=== PATIENT | male | born 1955 | race Caucasian/White ===

== ENCOUNTER 2018-04-11 12:39 | Emergency (ER) | payer BC ==
[2018-04-11 13:35] VITALS: BP 145/73
--- NOTE | 2018-04-11 13:47 | UC ---
General HPI - HPI Summary HPI Summary: pt had a tia this past Thursday. while in [facility], he had a R carotid endarterectomy on thursday by Dr Magana. on , he noted a little swelling at the site which is now just a little worse. he denies any pain, ROSA, fever or trouble with speech/swallow. - History of Current Complaint Chief Complaint: UCGeneralIllness Stated Complaint: POST OP SWELLING JAW AREA Time Seen by Provider: 04/11/18 13:32 Hx Obtained From: Patient, Family/Refractory Technician Onset/Duration: Gradual Onset Timing: Constant Pain Intensity: 0 Associated Signs & Symptoms: Negative: Fever - Allergy/Home Medications Allergies/Adverse Reactions: Allergies Allergy/AdvReac Type Severity Reaction Status Date / Time No Known Allergies Allergy Verified 04/11/18 13:27 Home Medications: Home Medications Aspirin [Aspirin Childrens 81 MG] 162 mg PO DAILY 04/11/18 [History Confirmed ] Atorvastatin* [Lipitor*] 80 mg PO DAILY 04/11/18 [History Confirmed 04/11/18] amLODIPine TAB* [Norvasc 5 mg TAB*] 2.5 mg PO DAILY 04/11/18 [History Confirmed 04/11/18] PMH/Surg Hx/FS Hx/Imm Hx - Additional Past Medical History Additional PMH: TIA this week and new tx for lipids and BP. R carotid endarterectomy this week Other History Of: Negative For: HIV, Hepatitis B, Hepatitis C, Anticoagulant Therapy - Surgical History Surgical History: Yes Surgery Procedure, Year, and Place: Ears - "scraped infection off the bone", "I have a piece of titanium in there for something". gallbladder removal - Family History Known Family History: Positive: Cardiac Disease, Hypertension - Social History Lives: With Family Alcohol Use: Daily Alcohol Amount: 2-3 beers nightly Substance Use Type: None Smoking Status (MU): Heavy Every Day Tobacco Smoker Type: Cigarettes Amount Used/How Often: 1PPD Length of Time of Smoking/Using Tobacco: 20+ years Household Exposure Type: Cigarettes - Immunization History Most Recent Influenza Vaccination: 2012 Vaccination Up to Date: Yes Review of Systems Constitutional: Negative Skin: Negative Eyes: Negative ENT: Negative Respiratory: Negative Cardiovascular: Negative Gastrointestinal: Negative Genitourinary: Negative Motor: Negative Neurovascular: Negative Musculoskeletal: Edema - R neck at surgical site Neurological: Negative Psychological: Negative Is Patient Immunocompromised?: No All Other Systems Reviewed And Are Negative: Yes Physical Exam Triage Information Reviewed: Yes Appearance: Well-Appearing Vital Signs: Initial Vital Signs Temp 97.3 F 04/11/18 13:31 Pulse 63 04/11/18 13:31 Resp 18 04/11/18 13:31 BP 145/73 04/11/18 13:31 Pulse Ox 99 04/11/18 13:31 Vital Signs Reviewed: Yes Eyes: Positive: Conjunctiva Clear ENT: Positive: Hearing grossly normal, TMs normal. Negative: Nasal congestion, Nasal drainage Neck: Positive: Other: - R side of neck post op site closed without red or warmth. The area is tender to gentle touch and is swollen/indurated to about 6cm. No carotid bruits. No overt adenopathy. Respiratory: Positive: Lungs clear, Normal breath sounds Cardiovascular: Positive: RRR, No Murmur Abdomen Description: Positive: Nontender, No Organomegaly, Soft Bowel Sounds: Positive: Present Musculoskeletal: Positive: ROM Intact Neurological: Positive: Other: - A&Ox3. CN 2-12 grossly intact. Steady gait. Gross s/v/m intact x4. Psychological: Positive: Normal Response To Family, Age Appropriate Behavior Skin Exam: Normal Course/Dx - Course Course Of Treatment: pt needs transfer to [facility] for evaluation of the post op site. EMS declined, will drive. [facility] transfer center called and report given. They advise pt go to [facility] [place]. - Differential Dx - Multi-Symptom Provider Diagnoses: Acute swelling and induration R neck at post op site. Discharge - Sign-Out/Discharge Documenting (check all that apply): Discharge/Admit/Transfer - Discharge Plan Condition: Stable Disposition: TRANS [facility] OF CARE FAC Referrals: Edwin Tim MD [Primary Care Provider] - Additional Instructions: GO DIRECTLY TO [facility] EMERGENCY ROOM IMMEDIATELY UPON LEAVING HERE DISCUSSED. REORT GIVEN TO THE TRANSFER CENTER - Billing Disposition and Condition Condition: STABLE Disposition: EMTMALENA
== END 2018-04-11 13:57 | disposition home or self-care (01) ==
LOC: UCCORT 12:39
DX: R22.1 Localized swelling, mass and lump, neck (principal); R23.4 Changes in skin texture; Z86.73 Personal history of transient ischemic attack (TIA), and cerebral infarction without residual deficits; F17.210 Nicotine dependence, cigarettes, uncomplicated
CPT/HCPCS: 99212; G0463

== ENCOUNTER 2019-05-23 13:29 | Emergency (ER) | payer BC ==
[2019-05-23 14:33] VITALS: BP 132/69
--- NOTE | 2019-05-23 14:47 | UC ---
Throat Pain/Nasal Ji HPI - HPI Summary HPI Summary: 63 yo male with 10 or more day hx of sinus pressure and pain/post nasal drip and cough no fever or chills - History of Current Complaint Chief Complaint: UCGeneralIllness Stated Complaint: SINUS Time Seen by Provider: 05/23/19 14:45 Hx Obtained From: Patient Onset/Duration: Gradual Onset, Lasting Days Severity: Moderate Pain Intensity: 0 Pain Scale Used: 0-10 Numeric Cough: Nonproductive Associated Signs & Symptoms: Positive: Sinus Discomfort, Nasal Discharge - Epiglottits Risk Factors Epiglottis Risk Factors: Negative - Allergies/Home Medications Allergies/Adverse Reactions: Allergies Allergy/AdvReac Type Severity Reaction Status Date / Time No Known Allergies Allergy Verified 05/23/19 14:33 Home Medications: Home Medications Esomeprazole(NF) [NexIUM(NF)] 40 mg PO DAILY 05/23/19 [History Confirmed ] PMH/Surg Hx/FS Hx/Imm Hx Previously Healthy: Yes Cardiovascular History: Hypertension Respiratory History: Bronchitis Other History Of: Negative For: HIV, Hepatitis B, Hepatitis C, Anticoagulant Therapy - Surgical History Surgical History: Yes Surgery Procedure, Year, and Place: Ears - "scraped infection off the bone", "I have a piece of titanium in there for something". gallbladder removal, stent put in neck 03/2018 - Family History Known Family History: Positive: Cardiac Disease, Hypertension - Social History Alcohol Use: Daily Alcohol Amount: 2-3 beers nightly Substance Use Type: None Smoking Status (MU): Heavy Every Day Tobacco Smoker Type: Cigarettes Amount Used/How Often: 1PPD Length of Time of Smoking/Using Tobacco: 20+ years Household Exposure Type: Cigarettes - Immunization History Most Recent Influenza Vaccination: 2013 Vaccination Up to Date: Yes Review of Systems All Other Systems Reviewed And Are Negative: Yes Constitutional: Positive: Fatigue Skin: Positive: Negative Eyes: Positive: Negative ENT: Positive: Nasal Discharge, Sinus Congestion, Sinus Pain/Tenderness Respiratory: Positive: Cough Cardiovascular: Positive: Negative Gastrointestinal: Positive: Negative Genitourinary: Positive: Negative Motor: Positive: Negative Neurovascular: Positive: Negative Musculoskeletal: Positive: Negative Neurological: Positive: Negative Psychological: Positive: Negative Physical Exam Triage Information Reviewed: Yes Appearance: Well-Appearing, No Pain Distress, Well-Nourished Vital Signs: Initial Vital Signs Temp 97.5 F 05/23/19 14:28 Pulse 61 05/23/19 14:28 Resp 16 05/23/19 14:28 BP 132/69 05/23/19 14:28 Pulse Ox 99 05/23/19 14:28 Vital Signs Reviewed: Yes Eyes: Positive: Conjunctiva Clear ENT: Positive: Nasal congestion, Sinus tenderness, Uvula midline. Negative: Hearing grossly normal, Nasal drainage, TMs normal - chronic perf left, Tonsillar exudate, Trismus, Muffled voice, Hoarse voice, Dental tenderness Neck: Positive: Supple, Nontender Respiratory: Positive: Lungs clear, Normal breath sounds, No respiratory distress, No accessory muscle use Cardiovascular: Positive: RRR, No Murmur Neurological: Positive: Alert Psychological Exam: Normal Skin Exam: Normal Throat Pain/Nasal Course/Dx - Differential Dx/Diagnosis Provider Diagnosis: Acute sinusitis, Smoker Discharge - Sign-Out/Discharge Documenting (check all that apply): Patient Departure All imaging exams completed and their final reports reviewed: No Studies - Discharge Plan Condition: Stable Disposition: HOME Prescriptions: Amoxicillin PO (*) [Amoxicillin 875 MG (*)] 875 mg PO BID #20 tab Fluticasone NASAL SPRAY 50MCG* [Flonase NASAL SPRAY 50MCG*] 2 spray BOTH NARES BID #1 btl Patient Education Materials: Sinusitis (ED) Referrals: Farzana Guerrero PA [Primary Care Provider] - 1 Week (if not better) Additional Instructions: saline nasal spray OTC 2 sprays each nostril twice daily about 5 minutes before using flonase - Billing Disposition and Condition Condition: STABLE Disposition: Home
== END 2019-05-23 15:02 | disposition home or self-care (01) ==
LOC: UCCORT 13:29
DX: J01.90 Acute sinusitis, unspecified (principal); F17.210 Nicotine dependence, cigarettes, uncomplicated; I10 Essential (primary) hypertension
CPT/HCPCS: 99212; G0463

== ENCOUNTER 2020-01-15 13:46 | Emergency (ER) | payer BC ==
--- OUTSIDE RECORDS SUMMARY | 2020-01-15 15:05 | XMS REPORT | Continuity of Care Document ---
:1955 External Reference #:[id number] Author Name BULL Crane (transmitted by agent of provider Juaquin Moncada) Address [address] [place] [address] Care Team Providers Name Role Phone Farzana Guerrero PA - Physician Cardiac Tech Care Team Information Professional Caster Problems Active Problems Provider Date Transient cerebral ischemia Onset: 08/09/2018 Hyperlipidemia Onset: 08/09/2018 Salmonella gastroenteritis Onset: 08/09/2018 Type 2 diabetes mellitus Onset: 08/09/2018 Carotid artery occlusion Onset: 08/09/2018 Anxiety state Onset: 08/09/2018 Recurrent depression Onset: 08/09/2018 Essential hypertension Onset: 08/09/2018 Acute suppurative otitis media with spontaneous Onset: 08/09/2018 rupture of ear drum Hearing loss Onset: 08/09/2018 Lateral epicondylitis Onset: 09/23/2013 Gastroesophageal reflux disease Onset: 09/23/2013 Tobacco user Onset: 09/23/2013 Mastoiditis BULL Crane Onset: 08/19/2019 Chronic otitis externa BULL Crane Onset: 08/19/2019 Social History Type Date Description Comments Sex Unknown Tobacco Use Start: Unknown Current Cigarette Smoker 1 1/2 Packs Daily ETOH Use Occasionally consumes alcohol Recreational Drug Use Denies Drug Use Tobacco Use Reviewed: 12/07/17 Heavy tobacco smoker (more than 10 cigarettes/day) Smoking Status Reviewed: 12/07/19 Heavy tobacco smoker (more than 10 cigarettes/day) Exercise Type/Frequency Does not exercise Tattoo/Piercing Tattoo right arm left Allergies, Adverse Reactions, Alerts Description No Known Drug Allergies Medications Active Medications SIG Qnty Indications Ordering Date Provider Ciprodex 3 to 4 drops in 7.500ml H60.8x2 Edwni 08/17/2019 0.3-0.1% affected ear twice MD Meeta Suspension a day for 5 to 7 days Esomeprazole Take 1 Capsule 90caps 10/04/2018 Magnesium Daily MD Meeta 40mg Capsules DR Fuentes Starting use as directed 53tabs Z71.6 04/12/2018 Month Vega MD Meeta 0.5mg X 11 & 1 mg X 42 Tablets Amlodipine Besylate Take 1 Tablet 90tabs 04/08/2018 Daily MD Meeta 2.5mg Tablets Atorvastatin Calcium Take 1 Tablet 90tabs Edwin 04/08/2018 Daily MD Meeta 80mg Tablets Aspirin Childrens 1 by mouth every 100units 04/08/2018 day MD Meeta 81mg Chewtabs Citalopram Take 1 Tablet 90tabs Edwin 02/01/2018 Hydrobromide Daily MD Meeta 40mg Tablets Cialis one every day as 9tabs Edwin 07/09/2017 10mg Tablets needed ed MD Meeta Levothyroxine Sodium Take 1 Tablet 90tabs Edwin Daily For MD Meeta 50mcg Tablets Underactive Thyroid History Medications Amoxicillin/Clavulanate one pill 20tabs H66.91 Edwin 08/17/2019 - Potassium with food MD Meeta 09/07/2019 875-125mg Tablets twice a day Prednisone 2 tablets 9tabs H66.91 Edwin 08/17/2019 - 20mg Tablets day one and MD Meeta 09/07/2019 two, 1 tablet day 3,4,5, then one half tablet day 6,7,8 and 9 Immunizations CPT Code Status Date Vaccine Lot # [id number] Given 09/20/2013 Influenza Virus 3Yrs & Over [id number] Given 07/03/2008 Tdap - Tetanus/Diptheria/Acellular Pertussis Vital Signs Date Vital Result Comment 12/07/2019 4:19pm Height 67.8 inches 5'7.80" Weight 173.56 lb BP Systolic Sitting 126 mmHg BP Diastolic Sitting 70 mmHg Respiratory Rate 14 /min Body Temperature 98.8 F BMI (Body Mass Index) 26.5 kg/m2 09/07/2019 3:31pm Weight 177.56 lb BP Systolic Sitting 138 mmHg BP Diastolic Sitting 80 mmHg Results Description No Information Available Procedures Description No Information Available Medical Devices Description No Information Available Encounters Type Date Location Provider Dx Diagnosis Office Visit 09/07/[address] [facility] Primary Care BULL Crane H66.91 Otitis media , 3:30p unspecified, right ear Z72.0 Tobacco use R73.9 Hyperglycemia, unspecified E78.5 Hyperlipidemia, unspecified E03.9 Hypothyroidism, unspecified H60.62 Unspecified chronic otitis externa, left ear Office Visit 08/17/2019 11:15a [facility] Primary BULL Crane J06.9 Acute upper Care respiratory infection, unspecified H66.91 Otitis media, unspecified, right ear H60.8x2 Other otitis externa, left ear H65.22 Chronic serous otitis media, left ear Assessments Date Code Description Provider 12/07/2019 Z00.01 Adult health examination BULL Crane 09/07/2019 H66.91 Otitis media, unspecified, right ear BULL Crane 09/07/2019 Z72.0 Tobacco use BULL Crane 09/07/2019 R73.9 Hyperglycemia, unspecified BULL Crane 09/07/2019 E78.5 Hyperlipidemia, unspecified BULL Crane 09/07/2019 E03.9 Hypothyroidism, unspecified BULL Crane 09/07/2019 H60.62 Unspecified chronic otitis externa, left ear BULL Crane 08/17/2019 J06.9 Acute upper respiratory infection, unspecified BULL Crane 08/17/2019 H66.91 Otitis media, unspecified, right ear B[facility] Crane 08/17/2019 H60.8x2 Other otitis externa, left ear BULL Crane 08/17/2019 H65.22 Chronic serous otitis media, left ear B[facility] Crane Plan of Treatment Future Appointment(s):06/06/2020 4:00 pm - B[facility] Crane at [facility] Primary Care - Farzana Guerrero PAZ00.01 Adult health examinationNew Labs:Basic Metabolic Panel, Ordered: 12/07/19CBC Auto Diff, Ordered: 12/07/19Liver Function Panel, Ordered: 12/07/19Lipid Profile (Trig/Chol/HDL), Ordered: 12/07/19TSH (Thyroid Stim Horm), Ordered: 12/07/19Hemoglobin A1c (Glyco HGB), Ordered: 12/07/19 Functional Status Functional Condition Comment Date Status Bifocal glasses Active Partial upper dentures Active Hearing Aide Active Mental Status Description No Information Available Referrals Description No Information Available
--- OUTSIDE RECORDS SUMMARY | 2020-01-15 15:05 | XMS REPORT | Continuity of Care Document ---
:1955 External Reference #:[id number] Author Name [facility]ane (transmitted by agent of provider Juaquin Moncada) Address [address] [place] [address] Care Team Providers Name Role Phone Farzana Guerrero PA - Physician Psychiatric Nursing Assistant Care Team Information Ruby Software Developer [phone] Problems Active Problems Provider Date Transient cerebral [...] 3 to 4 drops in 7.500ml H60.8x2 Edwin 08/17/2019 0.3-0.1% affected ear twice MD Meeta [...] CPT Code Status Date Vaccine Lot # [id number] Given 09/20/2013 Influenza Virus 3Yrs & Over [id number] Given 07/03/2008 Tdap - Tetanus/Diptheria/Acellular Pertussis Vital [...] Location Provider Dx Diagnosis Office Visit 09/07/2019 [facility] BULL Crane H66.91 Otitis media , 3:30p unspecified, right ear Z72.0 Tobacco use R73.9 Hyperglycemia, unspecified E78.5 Hyperlipidemia, unspecified E03.9 Hypothyroidism, unspecified H60.62 Unspecified chronic otitis externa, left ear Office Visit 08/17/2019 11:15a [facility] Primary BULL Crane J06.9 Acute upper Care respiratory infection, unspecified H66.91 Otitis media, unspecified, right ear H60.8x2 Other otitis externa, left ear H65.22 Chronic serous otitis media, left ear Assessments Date Code Description Provider 09/07/2019 H66.91 Otitis media, unspecified, right ear [...] left ear BULL Crane Plan of Treatment No Information Available Functional Status Functional Condition Comment Date Status Bifocal glasses Active Partial upper dentures Active Hearing Aide Active Mental Status Description No Information Available Referrals Description No Information Available
[2020-01-15 15:25] VITALS: BP 138/78
--- NOTE | 2020-01-15 15:25 | UC ---
Respiratory Complaint HPI - HPI Summary HPI Summary: 64-year-old male smoker who has been ill with cold and cough symptoms for the past 2 weeks. He states now he is coughing up green sputum occasionally when he can get it up. - History of Current Complaint Chief Complaint: UCRespiratory Stated Complaint: COUGH Time Seen by Provider: 01/15/20 15:13 Hx Obtained From: Patient Onset/Duration: Gradual Onset, Lasting Weeks Timing: Intermittent Episodes Severity Initially: Mild Severity Currently: Mild Pain Intensity: 0 Character: Cough: Productive Aggravating Factors: Deep Breaths Alleviating Factors: Nothing Associated Signs And Symptoms: Positive: Wheezing, URI, Nasal Congestion - Allergies/Home Medications Allergies/Adverse Reactions: Allergies Allergy/AdvReac Type Severity Reaction Status Date / Time No Known Allergies Allergy Verified 01/15/20 15:13 Home Medications: Home Medications Citalopram TAB* [Celexa TAB*] 2 tab PO DAILY 11/05/14 [History Confirmed ] Levothyroxine TAB* [Synthroid 25 MCG TAB*] 1 tab PO DAILY 11/05/14 [History Confirmed 01/15/20] Aspirin [Aspirin Childrens 81 MG] 162 mg PO DAILY 04/11/18 [History Confirmed ] Atorvastatin* [Lipitor*] 80 mg PO DAILY 04/11/18 [History Confirmed 01/15/20] amLODIPine TAB* [Norvasc 5 mg TAB*] 2.5 mg PO DAILY 04/11/18 [History Confirmed 01/15/20] Esomeprazole(NF) [NexIUM(NF)] 40 mg PO DAILY 05/23/19 [History Confirmed ] DOXYcycline CAP(*) [DOXYcycline 100MG CAP(*)] 100 mg PO BID 10 Days #20 cap [Rx] predniSONE 10 mg TAB [Deltasone 10 MG TAB*] 10 mg PO DAILY 12 Days #30 tab 01/15 [Rx] PMH/Surg Hx/FS Hx/Imm Hx Previously Healthy: Yes Endocrine History: Thyroid Disease Respiratory History: Asthma Other History Of: Negative For: HIV, Hepatitis B, Hepatitis C, Anticoagulant Therapy - Surgical History Surgical History: Yes Surgery Procedure, Year, and Place: Ears - "scraped infection off the bone", "I have a piece of titanium in there for something". gallbladder removal, carotidstent put in neck 03/2018 - Family History Known Family History: Positive: Cardiac Disease, Hypertension - Social History Lives: With Family Alcohol Use: Occasionally Alcohol Amount: 2-3 beers nightly Substance Use Type: None Smoking Status (MU): Heavy Every Day Tobacco Smoker Type: Cigarettes Amount Used/How Often: 1PPD Length of Time of Smoking/Using Tobacco: 20+ years Household Exposure Type: Cigarettes - Immunization History Most Recent Influenza Vaccination: 2012 Vaccination Up to Date: Yes Review of Systems All Other Systems Reviewed And Are Negative: Yes ENT: Positive: Nasal Discharge, Sinus Congestion Respiratory: Positive: Shortness Of Breath - Occasional shortness of breath with wheezing., Cough - Productive cough of yellow green sputum. Is Patient Immunocompromised?: No Physical Exam Triage Information Reviewed: Yes Appearance: Well-Appearing, No Pain Distress, Well-Nourished Vital Signs: Initial Vital Signs Temp 98.2 F 01/15/20 15:16 Pulse 67 01/15/20 15:16 Resp 16 01/15/20 15:16 BP 138/78 01/15/20 15:16 Pulse Ox 95 01/15/20 15:16 Vital Signs Reviewed: Yes Eyes: Positive: Conjunctiva Clear ENT: Positive: Pharynx normal, TMs normal, Uvula midline. Negative: Sinus tenderness Neck: Positive: Supple, Nontender, No Lymphadenopathy Respiratory: Positive: No respiratory distress, No accessory muscle use, Rhonchi - Scattered rhonchi throughout all lung caal, good air movement. Cardiovascular: Positive: RRR, No Murmur, Pulses Normal, Brisk Capillary Refill Musculoskeletal Exam: Normal Neurological Exam: Normal Psychological Exam: Normal Skin Exam: Normal Respiratory Course/Dx - Course Course Of Treatment: chest x-ray: FINDINGS: CARDIOMEDIASTINAL SILHOUETTE: The cardiomediastinal silhouette is normal. JUNIOR: The junior are normal. PLEURA: The costophrenic angles are sharp. No pleural abnormalities are noted. LUNG PARENCHYMA: The lungs are clear. ABDOMEN: The upper abdomen is clear. There is no subphrenic gas. BONES AND SOFT TISSUES: Degenerative changes are noted. OTHER: None. IMPRESSION: NO ACTIVE CARDIOPULMONARY DISEASE. The patient is comfortable here and in no distress. He was given a DuoNeb treatment and felt like he was having improved air movement. He was advised to stop smoking. Lung sounds following the DuoNeb treatment still had some scattered rhonchi with mild expiratory wheezing. - Differential Dx/Diagnosis Provider Diagnosis: Bronchitis Discharge ED - Sign-Out/Discharge Documenting (check all that apply): Patient Departure All imaging exams completed and their final reports reviewed: Yes - Discharge Plan Condition: Fair Disposition: HOME Prescriptions: DOXYcycline CAP(*) [DOXYcycline 100MG CAP(*)] 100 mg PO BID 10 Days #20 cap predniSONE 10 mg TAB [Deltasone 10 MG TAB*] 10 mg PO DAILY 12 Days #30 tab Patient Education Materials: Acute Bronchitis (ED) Referrals: Farzana Guerrero PA [Primary Care Provider] - Additional Instructions: No dairy products, antacids or multivitamins 2 hours before you take the antibiotic and 2 hours after however take it with food. Take the prednisone with food. Definite follow-up with your primary care provider if no improvement in 4 or 5 days. If you develop any worsening symptoms, difficulty breathing or chest pain your to go to the emergency room for further treatment. - Billing Disposition and Condition Condition: FAIR Disposition: Home
[2020-01-15] MEDS ORDERED: Albuterol/Ipratropium NEB.SOL* Albuterol 2.5 MG/Ipratropium 0.5 MG 3 ML INH ONE (15:39)
== END 2020-01-15 16:30 | disposition home or self-care (01) ==
LOC: UCCORT 13:46
DX: J40 Bronchitis, not specified as acute or chronic (principal); J45.909 Unspecified asthma, uncomplicated; E07.9 Disorder of thyroid, unspecified; F17.210 Nicotine dependence, cigarettes, uncomplicated; Z79.52 Long term (current) use of systemic steroids; Z79.82 Long term (current) use of aspirin; Z79.890 Hormone replacement therapy
CPT/HCPCS: 71046; 99212; A9270-GY; G0463